=== PATIENT | female | born 1990 | race African-American/Black ===

== ENCOUNTER 2016-08-29 17:12 | Emergency (ER) | payer OTHER ==
[~2016-08-29] VITALS: Ht 149.9 cm; Wt 72.6 kg
[~2016-08-29 17:12] MED LIST: CITA20TA9 PO; MOME13HF2 IH
[2016-08-29 18:44] VITALS: BP 118/54
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
[2016-08-29] MEDS ORDERED: HYDROCODONE/APAP 5/325MG TABLET. PO ONE (19:30)
[2016-08-29] MEDS ORDERED: ORPHENADRINE CITRATE 60 MG/2 ML VIAL. IM ONE (20:15)
[2016-08-29] MEDS ORDERED: KETOROLAC TROMETHAMINE 60 MG/2 ML SYRINGE. IM ONE (20:15)
[2016-08-29] MEDS ORDERED: HYDR-971 PO (20:40)
[2016-08-29] MEDS ORDERED: CYCL10TA2 PO (20:40)
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
== END 2016-08-29 21:29 | disposition home or self-care (01) ==
LOC: ER 17:12
DX: M25.522 Pain in left elbow (principal); M25.532 Pain in left wrist; M54.89 Other dorsalgia; J45.909 Unspecified asthma, uncomplicated; V49.88XA Car occupant (driver) (passenger) injured in other specified transport accidents, initial encounter; Y93.89 Activity, other specified; Y99.8 Other external cause status; Y92.488 Other paved roadways as the place of occurrence of the external cause
CPT/HCPCS: 29125; 73080; 73110; 73502; 96372; 99284; J1885; J2360; 29105